=== PATIENT | female | born 1980 ===

== ENCOUNTER 2016-11-14 19:10 | Emergency (ER) | payer OTHER ==
[2016-11-14 19:11] VITALS: BMI 31.0
[2016-11-14 19:19] VITALS: BP 121/78; PULSE 68; RESP 18; TEMP 98.5; O2SAT 100
[2016-11-14] MEDS ORDERED: Sodium Chloride 0.9% 1,000 ML IV SCH ×2 (20:15→20:18)
--- NOTE | 2016-11-14 20:34 | ED PDOC ---
HPI: Headache Time Seen by Provider: 11/14/16 19:33 Chief Complaint (Nursing): Weakness/Neurological Deficit Additional Complaint(s): 56 YO F w/ h/o migraines, hypothyroidism, arthritis, carpal tunnel, anxiety, depression presents to the ER with a worsening migraine. She states she has been getting the migrains 3-4 times a week for the last month. Currently states that she is having left side pain and numbness starting from the let side of her head down to her feet. Currently states the pain is a 9/10. Headache is relieved with laying in dark room. She denies any trauma or injury. She has taken 3 pills 3 times a day of Tylenol which did not provide any relief. She has had 4 episodes on nonbillious/ non bloody vomiting today, and has not ate anything as per patient. She is feeling a little light headed. Denies any problems with urinating. She also complains of 2 days of diarrhea, non bloody. She states her neurologist told her she has a problem in her spine and that is the reason for her pain. She usually takes gabapenitn and Lyrica but did not take it today. She sees a neurologist and a rhematologist. PMH: Migraine, Anemia, pancreatitis, Hypothyroidism, Arthritis, Carpal tunnel, Anxiety, depression PSH: Apendectomy in 2004, Left ovarian torsion 2013, Carpal tunnel surgery x4 Allergy: Morphine Medicine: Gabapentin, Lyrica, Celebrex, Tylenol, Clonazapam Past Medical History Vital Signs: Last Vital Signs Temp 98.5 F 11/14/16 19:16 Pulse 68 11/14/16 19:16 Resp 18 11/14/16 19:16 BP 121/78 11/14/16 19:16 Pulse Ox 100 11/14/16 19:16 - Medical History PMH: Anemia, Anxiety, Arthritis, Back Problems, Depression, Migraine Denies: Diabetes, Hepatitis, HIV, HTN, Seizures, Sexually Transmitted Disease - Surgical History Surgical History: Appendectomy, (x3) - Family History Family History: States: Unknown Family Hx - Immunization History Hx Tetanus Toxoid Vaccination: No Hx Influenza Vaccination: No Hx Pneumococcal Vaccination: No - Home Medications Home Medications: Ambulatory Orders Medication Instructions Recorded Diclofenac Sodium 75 mg PO TID #50 ect 07/14/16 Dicyclomine [Bentyl] 20 mg PO Q12 PRN #20 tab 03/06/16 Ondansetron ODT [Zofran ODT] 4 mg PO Q6 PRN #16 odt 03/06/16 traMADol [Ultram] 50 mg PO Q8 #10 tab 11/14/16 - Allergies Allergies/Adverse Reactions: Allergies Allergy/AdvReac Type Severity Reaction Status Date / Time morphine Allergy Mild RASH Verified 11/14/16 19:15 Physical Exam - Physical Exam Appears: Positive for: Uncomfortable Head Exam: Positive for: ATRAUMATIC, NORMAL INSPECTION, NORMOCEPHALIC Skin: Positive for: Normal Color, Warm Eye Exam: Positive for: Normal appearance, EOMI, PERRL Cardiovascular/Chest: Positive for: Regular Rate, Rhythm Respiratory: Positive for: Normal Breath Sounds. Negative for: Rales, Rhonchi Gastrointestinal/Abdominal: Positive for: Bowel Sounds, Soft, Other (slight generalized tenderness) Extremity: Positive for: Other (Unable to test range of motion limitied by pain) DTR - Bicep (R): 3+ DTR - Bicep (L): 3+ DTR - Knee (R): 3+ DTR - Knee (L): 3+ Neurologic/Psych: Positive for: Alert, bisque kiln placer II-XII, Oriented, Gait (Unstable limitied by pain), Other (Sensation is intact b/l in upper and lower extremities. Motor could not be assesed becuase it was limitied by the pain. Hand product/device technologist was normal strength b/l, and patient was able to elevate both legs off the bed. ) - Laboratory Results Result Diagrams: 11/14/16 20:50 11/14/16 20:50 - ECG O2 Sat by Pulse Oximetry: 100 - Progress ED Course And Treament: 36 YO F w/ h/o migraines, hypothyroidism, anxiet and depression presents to the er with worsening headache and left sided pain and weakness which has been occuring over the last month not relieved with tylenol. 1) Headache w/ left sided pain and weakness most likely secondary to migraine - IV Fluids - Tordol 30mg IM - Regalan 2) Nausea and Vomiting most likely secondary to migraine - IV fluids - Zofran - CBC, CMp Condition: Improved Medical Decision Making Medical Decision Makin YO F w/ h/o migraine, hypothyroidism, anxiety and depresion presents to the ER w/ left sided migraine and some weakness on the left side which was improved after giving the patient Tordol, regalan, and zofran along with fluids. Labs: CBC and CMP were unremarkable ER course: - Tordol - Regalan - Zofran - IV fluids - 10:45 pm: PAtient appears to be doing well seen and socializing and laughing with family and friends is able to move all extremities with no problem. Has been given a script for Tramadol and to follow up with her PMD in 2-3 day and follow up with her neurologist in one week. ER precausions have been given, if symptoms worsen please return to the ER. Disposition - Clinical Impression Clinical Impression: Atypical migraine - Patient ED Disposition Is Patient to be Admitted: No - Disposition Referrals: Ashely Srinivasan APN [Advanced Practice Nurse] - Bill Kendrick MD [Medical Doctor] - Disposition: Routine/Home Disposition Time: 22:58 Condition: GOOD Additional Instructions: Assesment: Atypical Migraine - Please avoid stressful situations, bright lights, tv exposure and other triggers that lead to migraines. Follow up with your PMD in the next 2-3 days, and please follow up with your neurologist in the next week. - Take Tramadol 50 mg PO Q8 w/ food as needed for migraine. If symptoms worsen please return to the ER. Prescriptions: traMADol [Ultram] 50 mg PO Q8 #10 tab Instructions: Migraine Headache (ED) Print Language: CONGOLESE
[2016-11-14 20:57] LABS: HEMATOCRIT 36.2 % (34.0-47.0); MEAN CELL VOLUME 77.3 fl (81.0-99.0); MEAN CORPUSCULAR HEMOGLOBIN 25.6 pg (27.0-31.0); MEAN CORPUSCULAR HGB CONC 33.1 g/dL (33.0-37.0); RED CELL DISTRIBUTION WIDTH 16.1 % (11.5-14.5); WHITE BLOOD COUNT 7.4 K/uL (4.8-10.8)
[2016-11-14 21:14] LABS: ALB/GLOB RATIO 1.4 (1.0-2.1); ALKALINE PHOSPHATASE 55 U/L (38-126); ALT/SGPT 41 U/L (9-52); AST/SGOT 35 U/L (14-36); BILIRUBIN,TOTAL 0.7 mg/dl (0.2-1.3); BLOOD UREA NITROGEN 10 mg/dl (7-17); CALCIUM 9.4 mg/dL (8.4-10.2); CARBON DIOXIDE 25 mmol/L (22-30); CHLORIDE 106 mmol/L (98-107); GFR AFRICAN-AMERICAN > 60; GLUCOSE,RANDOM 90 mg/dL (65-105); POTASSIUM 3.8 MMOL/L (3.6-5.0); SODIUM 143 mmol/l (132-148); TOTAL PROTEIN 8.1 G/DL (6.3-8.2)
== END 2016-11-14 22:51 | disposition home or self-care (01) ==
LOC: H.ER 19:10
DX: G43.009 Migraine without aura, not intractable, without status migrainosus (principal); E03.9 Hypothyroidism, unspecified; F32.9 Major depressive disorder, single episode, unspecified; F41.9 Anxiety disorder, unspecified; K85.90 Acute pancreatitis without necrosis or infection, unspecified

== ENCOUNTER 2018-02-03 20:11 | Emergency (ER) | payer OTHER ==
[2018-02-03 20:11] VITALS: BMI 31.0
[2018-02-03 20:26] VITALS: RESP 18
[2018-02-03] MEDS ORDERED: Sodium Chloride 0.9% 1,000 ML IV STA (20:49)
[2018-02-03 21:27] LABS: SQUAMOUS EPITHIAL 4 /hpf (0-5); URINE BILIRUBIN NEGATIVE (NEGATIVE); URINE BLOOD NEGATIVE (NEGATIVE); URINE CLARITY CLEAR (Clear); URINE COLOR YELLOW (YELLOW); URINE GLUCOSE (UA) NEG (Normal); URINE LEUKOCYTE ESTERASE NEG Leu/uL (Negative); URINE PROTEIN NEGATIVE (NEGATIVE); URINE UROBILINOGEN 0.2-1.0 mg/dL (0.2-1.0)
[2018-02-03 21:28] LABS: BASO # 0.1 K/uL (0.0-0.2); BASO % 0.8 % (0.0-2.0); EOS # 0.1 K/uL (0.0-0.7); EOS % 1.4 % (0.0-4.0); HEMOGLOBIN 10.9 g/dL (12.0-16.0); LYMPH # 2.1 K/uL (1.0-4.3); LYMPH % 28.8 % (20.0-40.0); MEAN CELL VOLUME 71.7 fl (81.0-99.0); MEAN CORPUSCULAR HEMOGLOBIN 23.4 pg (27.0-31.0); MEAN CORPUSCULAR HGB CONC 32.7 g/dL (33.0-37.0); MEAN PLATELET VOLUME 8.9 fl (7.2-11.7); MONO # 0.4 K/uL (0.0-0.8); NEUT # 4.6 K/uL (1.8-7.0); NRBC % 0.1 % (0.0-0.0); RBC 4.64 Mil/uL (3.80-5.20); RED CELL DISTRIBUTION WIDTH 18.4 % (11.5-14.5); WHITE BLOOD COUNT 7.2 K/uL (4.8-10.8)
--- NOTE | 2018-02-03 21:29 | ED PDOC ---
HPI: Abdomen Time Seen by Provider: 02/03/18 20:45 Chief Complaint (Nursing): Headache History Per: Patient History/Exam Limitations: no limitations Additional Complaint(s): 37-year-old female, PMHx includes Anemia, Migraines, gall stones and Cervical ridiculopathy, presents to the emergency department with complaints of ongoing epigastric pain that worsens at night, associated with vomiting for the last few days and headache, that is not resolving. Pt also notes numbness in hands and legs. States she feels fatigues with minimal exertional activity. She denies any fevers and chills. States she takes Lyrica and Naprosyn for headache and nerve pain. Past Medical History Reviewed: Historical Data, Nursing Documentation, Vital Signs Vital Signs: Last Vital Signs Temp 98.1 F 02/03/18 20:21 Pulse 79 02/03/18 20:21 Resp 18 02/03/18 20:21 BP 116/76 02/03/18 20:21 Pulse Ox 99 02/03/18 21:35 - Medical History PMH: Anemia, Anxiety, Arthritis, Back Problems, Depression, Migraine Denies: Diabetes, Hepatitis, HIV, HTN, Seizures, Sexually Transmitted Disease - Surgical History Surgical History: Appendectomy, (x3) - Immunization History Hx Tetanus Toxoid Vaccination: No Hx Influenza Vaccination: No Hx Pneumococcal Vaccination: No - Home Medications Home Medications: Ambulatory Orders Medication Instructions Recorded Diclofenac Sodium 75 mg PO TID #50 ect 12/05/15 Dicyclomine [Bentyl] 20 mg PO Q12 PRN #20 tab 03/06/16 Ondansetron ODT [Zofran ODT] 4 mg PO Q6 PRN #16 odt 03/06/16 traMADol [Ultram] 50 mg PO Q8 #10 tab 11/14/16 Acetaminophen [Acetaminophen Extra 2 tab PO Q6 PRN #24 tablet 02/03/18 Strength] Ranitidine HCl [Zantac 75] 75 mg PO BID #10 tablet 02/03/18 - Allergies Allergies/Adverse Reactions: Allergies Allergy/AdvReac Type Severity Reaction Status Date / Time morphine Allergy Mild RASH Verified 02/03/18 20:20 Review of Systems Constitutional: Negative for: Fever Gastrointestinal: Positive for: Nausea, Vomiting, Abdominal Pain Neurological: Positive for: Headache Physical Exam - Reviewed Nursing Documentation Reviewed: Yes Vital Signs Reviewed: Yes - Physical Exam Appears: Positive for: Non-toxic, No Acute Distress Head Exam: Positive for: ATRAUMATIC, NORMOCEPHALIC Skin: Positive for: Warm, Dry, Pallor. Negative for: Rash Eye Exam: Positive for: Other (conunctival pallor) Neck: Positive for: Painless ROM Cardiovascular/Chest: Positive for: Regular Rate, Rhythm. Negative for: Murmur Respiratory: Positive for: Normal Breath Sounds. Negative for: Decreased Breath Sounds, Accessory Muscle Use Gastrointestinal/Abdominal: Positive for: Soft, Tenderness (mild). Negative for : Guarding, Rebound Extremity: Positive for: Normal ROM, Other (5/5 STRENGTH all four extremities). Negative for: Deformity Neurologic/Psych: Positive for: Alert, Oriented - Laboratory Results Result Diagrams: 02/03/18 21:15 02/03/18 21:15 Urine POC: Negative - ECG O2 Sat by Pulse Oximetry: 99 (RA) Pulse Ox Interpretation: Normal - Progress ED Course And Treament: pepcid 20 mg iv zofran 4 mg iv x 1 dose reglan 10mg iv x 1 dose toradol 15 mg iv x 1 dose ns 1 liter 500 ml per hour x 1 dose patient notes persistent headache decadron 10 mg ivx 1 dose Patient comfortable in ED. US abdomen: no gallstones noted; no signs of cholecystitis Medical Decision Making Medical Decision Making: Plan: * Bloodwork * IVF, Pepcid, Reglan, Toradol * Urine Culture, UA * US Abdomen * Reassess and Disposition Scribe Attestation: Documented by Link Panchal, acting as a scribe for JOE Whalen. Provider Scribe Attestation: All medical record entries made by the Scribe were at my direction and personally dictated by me. I have reviewed the chart and agree that the record accurately reflects my personal performance of the history, physical exam, medical decision making, and the department course for this patient. I have also personally directed, reviewed, and agree with the discharge instructions and disposition. Disposition - Clinical Impression Clinical Impression: Gastritis, Migraine, Neck pain - Patient ED Disposition Is Patient to be Admitted: No - Disposition Disposition: Routine/Home Disposition Time: 23:37 Condition: FAIR Additional Instructions: para usa de motrin/naproxen/advil/asa Prescriptions: Acetaminophen [Acetaminophen Extra Strength] 2 tab PO Q6 PRN #24 tablet PRN Reason: Headache Ranitidine HCl [Zantac 75] 75 mg PO BID #10 tablet Instructions: Migraine Headaches in Adults, Neck Pain, Gastritis Forms: [facility] ED School/Work Excuse Print Language: CAMEROONIAN
[2018-02-03] MEDS ORDERED: Dexamethasone 10 MG in Sodium Chloride 0.9% 50 ML IV ONE (21:40)
[2018-02-03] MEDS ORDERED: Dexamethasone 4 mg/1 ml ONE (21:42)
[2018-02-03 21:44] LABS: ALB/GLOB RATIO 1.2 (1.0-2.1); ALBUMIN 4.2 g/dL (3.5-5.0); ALT/SGPT 35 U/L (9-52); AST/SGOT 38 U/L (14-36); BLOOD UREA NITROGEN 12 mg/dl (7-17); CALCIUM 8.6 mg/dL (8.4-10.2); GFR NON-AFRICAN AMERICAN > 60; LIPASE 96 U/L (23-300)
[2018-02-03 23:40] VITALS: BP 108/72; PULSE 78; TEMP 98.5; O2SAT 98
--- NOTE | 2018-02-04 12:31 | US ---
Date of service: 02/03/2018 HISTORY: EPIGASTRIC PAIN COMPARISON: None. TECHNIQUE: Sonographic evaluation of the right upper quadrant of the abdomen. FINDINGS: LIVER: Measures 14.9 cm in length. Patent portal vein. Portal venous flow: Hepatopetal. Unremarkable echogenicity of the liver parenchyma. No mass. No intrahepatic bile duct dilatation. GALLBLADDER: Unremarkable. No gallstones. COMMON BILE DUCT: Measures 3.4 mm. No stones. No dilatation. PANCREAS: Unremarkable as visualized. No mass. No ductal dilatation. RIGHT KIDNEY: Measures 3.8 x 4.4 x 10.0 cm in length. Normal echogenicity. No calculus, mass, or hydronephrosis. AORTA: No aneurysmal dilatation. IVC: Unremarkable. OTHER FINDINGS: None . IMPRESSION: No acute findings related to/accounting for the clinical presentation. Concordant results (preliminary interpretation) provided by [facility]. Procedure Completed: 22:28. Preliminary ([facility]) Report: Dictated and Authenticated: 00:06. February 04, 2018. Final Interpretation: 12:29. February 04, 2018.
== END 2018-02-03 23:48 | disposition home or self-care (01) ==
LOC: H.ER 20:11
DX: G43.909 Migraine, unspecified, not intractable, without status migrainosus (principal); K29.70 Gastritis, unspecified, without bleeding; M54.2 Cervicalgia; D64.9 Anemia, unspecified
CPT/HCPCS: 76705; 80053; 81003; 81025; 83690; 85025; 87086; 96374; 96375; 99285; J1100; J1885; J2765; J7030

== ENCOUNTER 2018-05-12 18:02 | Emergency (ER) | payer OTHER ==
[2018-05-12 18:02] VITALS: BMI 31.0
[2018-05-12 18:38] VITALS: BP 111/77; PULSE 75; RESP 16; TEMP 98.1; O2SAT 99
[2018-05-12 22:16] LABS: HEMOGLOBIN 11.1 g/dL (12.0-16.0); MEAN CELL VOLUME 72.2 fl (81.0-99.0); MEAN CORPUSCULAR HEMOGLOBIN 22.6 pg (27.0-31.0); MEAN CORPUSCULAR HGB CONC 31.3 g/dL (33.0-37.0); RBC 4.92 Mil/uL (3.80-5.20); RED CELL DISTRIBUTION WIDTH 17.7 % (11.5-14.5); WHITE BLOOD COUNT 4.7 K/uL (4.8-10.8)
[2018-05-12 22:25] LABS: ALB/GLOB RATIO 1.3 (1.0-2.1); ALBUMIN 4.4 g/dL (3.5-5.0); ALT/SGPT 26 U/L (9-52); AST/SGOT 24 U/L (14-36); BLOOD UREA NITROGEN 5 mg/dl (7-17); CALCIUM 9.2 mg/dL (8.4-10.2); GFR NON-AFRICAN AMERICAN > 60
--- NOTE | 2018-05-12 23:42 | ED PDOC ---
HPI: Psych/Substance Abuse Time Seen by Provider: 05/12/18 20:15 Chief Complaint (Nursing): Psychiatric Evaluation Chief Complaint (Provider): Depression, anxiety History Per: Patient History/Exam Limitations: no limitations Onset/Duration Of Symptoms: Days Current Symptoms Are (Timing): Still Present Additional Complaint(s): 37 yo female with history of depression, anemia and anxiety presents for evaluation of worsening depression and anxiety for the last 2 weeks since her of 10 years left her. Pt also reports having heaviness on the chest the last 2 weeks intermittent and being unable to sleep. PT states she has taken medications in the past for depression but stopped 2 months ago when she missed her appointment with her psychiatrist. No SOB. Denies SI/HI Past Medical History Reviewed: Historical Data, Nursing Documentation, Vital Signs Vital Signs: Last Vital Signs Temp 98.1 F 05/12/18 18:35 Pulse 75 05/12/18 18:35 Resp 16 05/12/18 18:35 BP 111/77 05/12/18 18:35 Pulse Ox 99 05/12/18 18:35 - Medical History PMH: Anemia, Anxiety, Arthritis, Back Problems, Depression, Migraine Denies: Diabetes, Hepatitis, HIV, HTN, Seizures, Sexually Transmitted Disease - Surgical History Surgical History: Appendectomy, (x3) - Family History Family History: States: Unknown Family Hx - Immunization History Hx Tetanus Toxoid Vaccination: No Hx Influenza Vaccination: No Hx Pneumococcal Vaccination: No - Home Medications Home Medications: Ambulatory Orders Medication Instructions Recorded Diclofenac Sodium 75 mg PO TID #50 ect 12/05/15 Dicyclomine [Bentyl] 20 mg PO Q12 PRN #20 tab 03/06/16 Ondansetron ODT [Zofran ODT] 4 mg PO Q6 PRN #16 odt 03/06/16 traMADol [Ultram] 50 mg PO Q8 #10 tab 11/14/16 Acetaminophen [Acetaminophen Extra 2 tab PO Q6 PRN #24 tablet 02/03/18 Strength] Ranitidine HCl [Zantac 75] 75 mg PO BID #10 tablet 02/03/18 - Allergies Allergies/Adverse Reactions: Allergies Allergy/AdvReac Type Severity Reaction Status Date / Time morphine Allergy Mild RASH Verified 02/03/18 20:20 Review of Systems ROS Statement: Except As Marked, All Systems Reviewed And Found Negative Constitutional: Negative for: Fever, Chills Cardiovascular: Positive for: Chest Pain. Negative for: Palpitations, Orthopnea Respiratory: Negative for: Cough, Shortness of Breath, Hemoptysis Gastrointestinal: Negative for: Vomiting, Abdominal Pain Genitourinary Female: Negative for: Dysuria, Frequency Musculoskeletal: Negative for: Neck Pain, Shoulder Pain Psych: Positive for: Anxiety, Depression. Negative for: Psychosis Physical Exam - Reviewed Nursing Documentation Reviewed: Yes Vital Signs Reviewed: Yes - Physical Exam Appears: Positive for: Well, Non-toxic, No Acute Distress Head Exam: Positive for: ATRAUMATIC, NORMAL INSPECTION, NORMOCEPHALIC Skin: Positive for: Normal Color, Warm, DRY Eye Exam: Positive for: Normal appearance ENT: Positive for: Normal ENT Inspection Neck: Positive for: Normal, Painless ROM Cardiovascular/Chest: Positive for: Regular Rate, Rhythm Respiratory: Positive for: Normal Breath Sounds. Negative for: Accessory Muscle Use, Respiratory Distress Gastrointestinal/Abdominal: Positive for: Normal Exam, Soft. Negative for: Ten derness Back: Positive for: Normal Inspection Extremity: Positive for: Normal ROM Neurologic/Psych: Positive for: Alert, Oriented - Laboratory Results Result Diagrams: 05/12/18 21:50 05/12/18 21:50 - ECG O2 Sat by Pulse Oximetry: 99 Medical Decision Making Medical Decision Making: LAbs completed. CXR without acute abnormalities. Crisis evaluation completed. Disposition - Clinical Impression Clinical Impression: Depression - Patient ED Disposition Is Patient to be Admitted: No Counseled Patient/Family Regarding: Diagnosis, Need For Followup - Disposition Disposition: Routine/Home Disposition Time: 23:47 Condition: GOOD Instructions: Depression, Adult (DC) Forms: [employer] (Luxembourgish) Print Language: MACEDONIAN
--- NOTE | 2018-05-13 13:31 | RAD ---
HISTORY: chest pain, anxiety, depression COMPARISON: Chest x-ray performed 08/09/15 TECHNIQUE: Chest, one view. FINDINGS: Examination limited by habitus. LUNGS: No focal consolidation. Please note that chest x-ray has limited sensitivity for the detection of pulmonary masses. PLEURA: No significant pleural effusion identified. No definite pneumothorax . CARDIOVASCULAR: Heart size appears within normal limits. No significant atherosclerotic calcification present. OSSEOUS STRUCTURES: No acute osseous abnormality identified. VISUALIZED UPPER ABDOMEN: Unremarkable. OTHER FINDINGS: None. IMPRESSION: No focal consolidation.
== END 2018-05-13 01:00 | disposition home or self-care (01) ==
LOC: H.ER 18:02
DX: F32.9 Major depressive disorder, single episode, unspecified (principal); F41.9 Anxiety disorder, unspecified; D64.9 Anemia, unspecified